=== PATIENT | female | born 1955 | race Caucasian/White ===

== ENCOUNTER 2017-07-13 06:17 | Day surgery (SDC) | payer BC, OTHER ==
[~2017-07-13] VITALS: Ht 157.5 cm; Wt 84.6 kg
[~2017-07-13 06:17] MED LIST: ATOR20 PO; BUPR150T2; BUPR150T2 PO; CALCAVITDA PO; CELE100; CLON1 PO; DIOVAN 320 MG PO; DIOVAN PO; FERR325 PO; GABA300 PO; IBUP600 PO; LEVSOD125; LEVSOD88 PO; MINO100 PO; MULVITMIND PO; OXYACE7.5T PO; SERT100 PO; SERT50 PO; TYLENOL ARTHRITIS PO; VALS80 PO; VENL25; VITAMIN D PO; WALKER USE; ZOLP5
[2017-07-13] MEDS ORDERED: PRAV20 (07:12)
[2017-07-13] MEDS ORDERED: EPIPEN0.3 MG/0.3 (07:14)
[2017-07-13] MEDS ORDERED: TRAZ100 PO (07:14)
[2017-07-13] MEDS ORDERED: HYDR-86 (07:14)
[2017-07-13] MEDS ORDERED: DESV50 (07:15)
== END 2017-07-13 09:26 | disposition home or self-care (01) ==
LOC: ORSCSDS 06:17
PROVIDERS: Orthopaedic Surgery
PROC: 0QSP04Z Reposition Left Metatarsal with Internal Fixation Device, Open Approach (ICD-10-PCS; principal; 2017-07-13 07:30)
DX: S92.302A Fracture of unspecified metatarsal bone(s), left foot, initial encounter for closed fracture (principal); I10 Essential (primary) hypertension; E03.9 Hypothyroidism, unspecified; J45.909 Unspecified asthma, uncomplicated; E78.5 Hyperlipidemia, unspecified; Z98.84 Bariatric surgery status; Z79.899 Other long term (current) drug therapy
CPT/HCPCS: C1713; C1769; J0690; J1100; J2250; J2370; J2405; J3010; J7120

== ENCOUNTER → 2018-08-17 | Outpatient (CLI) | payer BC, OTHER ==
[~2018-08-17] MED LIST changes: +DESV50; +EPIPEN0.3 MG/0.3; +HYDR-86; +PRAV20; +TRAZ100 PO
== END | disposition home or self-care (01) ==
LOC: LAB SHORT 07:58 → PLD 07:58
DX: D48.5 Neoplasm of uncertain behavior of skin (principal)
CPT/HCPCS: 88305

== ENCOUNTER 2019-01-05 08:42 | Day surgery (SDC) | payer BC, OTHER ==
[~2019-01-05] VITALS: Ht 154.9 cm; Wt 82.9 kg
[~2019-01-05 08:42] MED LIST changes: +LOSA25; +MONT10T; +REXULTI1 MG
--- NOTE | 2019-01-05 12:06 | NUR ---
01/05/19 1206 Nyla Cain 28G CIRCLAGE WIRE IMPLANTED FOR LARISSA BUNION RIGHT 1ST TOE.
--- NOTE | 2019-01-05 12:27 | NUR ---
01/05/19 1227 Pita Coleman PT OPENS EYES, NODS HEAD WHEN ADDRESSED. PT NOT USING VERBAL RESPONSES. VSS. PT DENIES PAIN AND NAUSEA AT THIS TIME
--- NOTE | 2019-01-05 12:42 | NUR ---
01/05/19 1242 Pita Coleman PT INTO RECLINER WITHOUT DIFFICULTY. AT BEDSIDE. PT TOLERATING PO INTAKE. PT DENIES PAIN AND NAUSEA AT THIS TIME. ICE AND ELEVATION IMPLEMENTED IN SDU.
== END 2019-01-05 13:25 | disposition home or self-care (01) ==
LOC: ORSCSDS 08:42
PROVIDERS: Podiatrist Foot & Ankle Surgery
PROC: 0QSQ04Z Reposition Right Toe Phalanx with Internal Fixation Device, Open Approach (ICD-10-PCS; principal; 2019-01-05 10:00)
PROC: 0QSN04Z Reposition Right Metatarsal with Internal Fixation Device, Open Approach (ICD-10-PCS; principal; 2019-01-05 10:00)
DX: M20.11 Hallux valgus (acquired), right foot (principal); M77.41 Metatarsalgia, right foot; I10 Essential (primary) hypertension; J45.909 Unspecified asthma, uncomplicated; E78.5 Hyperlipidemia, unspecified; E03.9 Hypothyroidism, unspecified; G47.33 Obstructive sleep apnea (adult) (pediatric); D50.9 Iron deficiency anemia, unspecified; Z68.34 Body mass index [BMI] 34.0-34.9, adult; E66.9 Obesity, unspecified; Z87.891 Personal history of nicotine dependence
CPT/HCPCS: C1713; J0171; J0690; J1100; J2001; J2250; J2405; J2704; J3010; J7120

== ENCOUNTER → 2019-11-21 | Outpatient (CLI) | payer BC, OTHER ==
[2019-11-23 08:12] LABS: Stool Occult Bld Immuno 1 Negative (NEGATIVE)
== END ==
LOC: LAB SHORT 14:51 → LAB 14:51 → LAB SHORT 11-22 14:51 → LAB FUT 10-31 16:00
PROVIDERS: Family Medicine
DX: Z12.11 Encounter for screening for malignant neoplasm of colon (principal); Z98.84 Bariatric surgery status
CPT/HCPCS: G0328

== ENCOUNTER 2020-07-16 11:48 | Day surgery (SDC) | payer MEDICARE, OTHER ==
[~2020-07-16] VITALS: Ht 157.5 cm; Wt 69.3 kg
--- NOTE | 2020-07-16 13:33 | NUR ---
07/16/20 4146 Sita Perez TIMEBEENA AND SITECRISTY WITH DR NAILS FOR NERVE BLOCK.
--- NOTE | 2020-07-16 14:09 | NUR ---
07/16/20 1409 Tirso Pierre 1 MG EPI ADDED TO EACH OF THE FIRST 3 BAGS OF LR FOR IRRIGATION PER ORDER.
--- NOTE | 2020-07-16 16:13 | NUR ---
07/16/20 1613 Sarah Moses PT REMAINED STABLE THROUGHOUT STAY IN STEP DOWN. MAINTAIN O2 ABOVE 96% ON ROOM AIR. PT REPORTS NO PAIN.
== END 2020-07-16 16:07 | disposition home or self-care (01) ==
LOC: ORSCSDS 11:48
PROVIDERS: Orthopaedic Surgery
PROC: 0RNK4ZZ Release Left Shoulder Joint, Percutaneous Endoscopic Approach (ICD-10-PCS; principal; 2020-07-16 13:15)
PROC: 0RBK4ZZ Excision of Left Shoulder Joint, Percutaneous Endoscopic Approach (ICD-10-PCS; principal; 2020-07-16 13:15)
PROC: 0LQ24ZZ Repair Left Shoulder Tendon, Percutaneous Endoscopic Approach (ICD-10-PCS; principal; 2020-07-16 13:15)
PROC: 0LS44ZZ Reposition Left Upper Arm Tendon, Percutaneous Endoscopic Approach (ICD-10-PCS; principal; 2020-07-16 13:15)
DX: M75.112 Incomplete rotator cuff tear or rupture of left shoulder, not specified as traumatic (principal); M75.22 Bicipital tendinitis, left shoulder; M75.42 Impingement syndrome of left shoulder; M75.32 Calcific tendinitis of left shoulder; I10 Essential (primary) hypertension; E78.5 Hyperlipidemia, unspecified; J45.909 Unspecified asthma, uncomplicated; E03.9 Hypothyroidism, unspecified; F32.9 Major depressive disorder, single episode, unspecified; Z79.899 Other long term (current) drug therapy
CPT/HCPCS: C1713; J0171; J0690; J1100; J2250; J2405; J2704; J3010; J7120

== ENCOUNTER → 2020-11-18 | Outpatient (CLI) | payer MEDICARE, OTHER ==
[2020-11-19 09:24] LABS: Stool Occult Bld Immuno 1 Negative (NEGATIVE)
== END | disposition home or self-care (01) ==
LOC: LAB 15:50 → LAB SHORT 15:50
PROVIDERS: Family Medicine
DX: Z12.11 Encounter for screening for malignant neoplasm of colon (principal); E03.9 Hypothyroidism, unspecified; Z98.84 Bariatric surgery status
CPT/HCPCS: G0328

== ENCOUNTER → 2020-11-21 | Outpatient (CLI) | payer MEDICARE, OTHER | END | disposition home or self-care (01) | LOC: LAB SHORT 15:04 | DX: R30.0 Dysuria (principal) | CPT/HCPCS: 87086 ==

== ENCOUNTER → 2021-11-16 | Outpatient (CLI) | payer MEDICARE, OTHER ==
[2021-11-20 09:48] LABS: Stool Occult Bld Immuno 1 Negative (NEGATIVE)
== END | disposition home or self-care (01) ==
LOC: LAB SHORT 09:11 → LAB 09:11
PROVIDERS: Family Medicine
DX: Z12.11 Encounter for screening for malignant neoplasm of colon (principal)
CPT/HCPCS: G0328

== ENCOUNTER 2024-10-24 09:25 | Day surgery (SDC) | payer MEDICARE, OTHER ==
[~2024-10-24] VITALS: Ht 154.9 cm; Wt 71.2 kg
[~2024-10-24 09:25] MED LIST changes: +Balanced Salt Epinephrine Irrigation Solution 500 mL IR SCH; +DERMACINRX FOL1 EAC2 PO; +EPIPEN0.3 MG/0.3 IM; +FERSU300 PO; +LEVSOD100; +Moxifloxacin HCL 0.5 MG/0.1 ML 0.4MLSYR RIGHTEYE SCH; +NALOXONE H0.4 MG/1 M IM; +Ondansetron 4 MG SoluTab MM PRN; +PHENYLEPHRINE\\TROPICAMIDE\\TETRACAINE OPHTHALMIC DILATING SOLN RIGHTEYE PRN; +Povidone-Iodine 450 DROP/30 ML Solution ONE; +Povidone-Iodine 450 DROP/30 ML Solution RIGHTEYE SCH; +Tetracaine HCl/Pf 0.5% Opth Soln 4 ml ONE
--- NOTE | 2024-10-24 10:16 | NUR ---
10/24/24 Najma Ellis UPON ARRIVAL PT RATED ANXIETY 03/17. 10MG OF VALIUM ADMINISTERED AT 1001. PT NOW ON PULSE OX; O2 SATS 94% ON RA. TETRACAINE ADMINISTER AT 1000 PLEDGETT ADMINISTERED AT 1001 PT TOLERATED WELL. CALL LIGHT IN REACH. AT BEDSIDE.
--- NOTE | 2024-10-24 10:37 | NUR ---
10/24/24 1037 Conchis Monk VITALS AT 1036 BP: 146/72 P: 84 O2: 96% WITH 8 LITERS OF BLOW BY OXYGEN
[2024-10-24 10:56] VITALS: BP 139/77
== END 2024-10-24 11:11 | disposition home or self-care (01) ==
LOC: ORSCSDS 09:25
PROVIDERS: Student in an Organized Health Care Education/Training Program
PROC: 08RJ3JZ Replacement of Right Lens with Synthetic Substitute, Percutaneous Approach (ICD-10-PCS; principal; 2024-10-24 11:00)
DX: H25.813 Combined forms of age-related cataract, bilateral (principal); H52.201 Unspecified astigmatism, right eye; I10 Essential (primary) hypertension; E78.00 Pure hypercholesterolemia, unspecified; E07.9 Disorder of thyroid, unspecified; Z79.899 Other long term (current) drug therapy
CPT/HCPCS: A9270; V2632

== ENCOUNTER 2024-11-01 11:26 | Day surgery (SDC) | payer MEDICARE, OTHER ==
[~2024-11-01] VITALS: Ht 154.9 cm; Wt 69.9 kg
[~2024-11-01 11:26] MED LIST changes: -Balanced Salt Epinephrine Irrigation Solution 500 mL IR SCH; -Moxifloxacin HCL 0.5 MG/0.1 ML 0.4MLSYR RIGHTEYE SCH; -PHENYLEPHRINE\\TROPICAMIDE\\TETRACAINE OPHTHALMIC DILATING SOLN RIGHTEYE PRN; -Povidone-Iodine 450 DROP/30 ML Solution RIGHTEYE SCH
--- NOTE | 2024-11-01 12:30 | NUR ---
11/01/24 1230 Sarah Moses 1226 BP:165/82 HR:80 O2:97% RESP:16
[2024-11-01 12:47] VITALS: BP 138/75
[2024-11-02] MEDS ORDERED: Moxifloxacin HCL 0.5 MG/0.1 ML 0.4MLSYR LEFTEYE SCH (06:00)
[2024-11-02] MEDS ORDERED: Balanced Salt Epinephrine Irrigation Solution 500 mL IR SCH (06:00)
[2024-11-02] MEDS ORDERED: PHENYLEPHRINE\\TROPICAMIDE\\TETRACAINE OPHTHALMIC DILATING SOLN LEFTEYE PRN (06:00)
[2024-11-02] MEDS ORDERED: Povidone-Iodine 450 DROP/30 ML Solution LEFTEYE SCH (06:00)
== END 2024-11-01 13:04 | disposition home or self-care (01) ==
LOC: ORSCSDS 11:26
PROVIDERS: Student in an Organized Health Care Education/Training Program
PROC: 08RK3JZ Replacement of Left Lens with Synthetic Substitute, Percutaneous Approach (ICD-10-PCS; principal; 2024-11-01 13:00)
DX: H25.812 Combined forms of age-related cataract, left eye (principal); H52.202 Unspecified astigmatism, left eye; Z96.1 Presence of intraocular lens; I10 Essential (primary) hypertension; E78.00 Pure hypercholesterolemia, unspecified; E07.9 Disorder of thyroid, unspecified; Z79.899 Other long term (current) drug therapy
CPT/HCPCS: A9270; V2632